=== PATIENT | male | born 1970 | race Caucasian/White ===

== ENCOUNTER 2019-05-02 12:21 | Emergency (ER) | payer BC ==
[2019-05-02] MEDS ORDERED: Sulfamethoxazole/Trimethoprim 800-160 MG Tab ONE (12:30)
--- NOTE | 2019-05-02 12:55 | EDM.PDOC ---
ED HPI GENERAL MEDICAL PROBLEM - General Stated Complaint: INJURY TO LEFT HAND Time Seen by Provider: 05/02/19 12:30 Source of Information: Reports: Patient History Limitations: Reports: No Limitations - History of Present Illness INITIAL COMMENTS - FREE TEXT/NARRATIVE: According to patient he [place] the Saw was running and and ready to stop and accidentally touched his left index finger and sustained laceration of the finger. He has been able to move the finer. Rates his pain at 1-2/10 now. He is upto date on his tetanus, last tetanus was 3 years ago. No other injuries. Onset: Today Onset Date: 05/02/19 Onset Time: 11:00 Duration: Resolved Prior to Arrival Location: Reports: Upper Extremity, Left Quality: Reports: Ache Severity: Mild Improves with: Reports: None Worsens with: Reports: None Associated Symptoms: Denies: Confusion, Chest Pain, Cough, Diaphoresis, Fever/ Chills, Headaches, Nausea/Vomiting, Rash, Seizure, Shortness of Breath, Syncope , Weakness - Related Data Allergies Allergy/AdvReac Type Severity Reaction Status Date / Time No Known Allergies Allergy Verified 05/02/19 12:31 Home Meds: Home Meds NK [No Known Home Meds] 05/02/19 [History] ED ROS GENERAL - Review of Systems Review Of Systems: See Below Constitutional: Denies: Fever, Chills HEENT: Denies: Rhinitis, Throat Pain, Throat Swelling Respiratory: Denies: Shortness of Breath, Pleuritic Chest Pain, Cough, Sputum Cardiovascular: Denies: Chest Pain, Lightheadedness GI/Abdominal: Denies: Abdominal Pain, Nausea, Vomiting : Denies: Flank Pain, Frequency Musculoskeletal: Denies: Joint Pain, Joint Swelling Skin: Reports: Bruising, Wound. Denies: Pruritis, Rash Neurological: Denies: Confusion, Dizziness, Headache, Numbness, Tingling ED EXAM, GENERAL - Physical Exam Exam: See Below Exam Limited By: No Limitations General Appearance: Alert, WD/WN, No Apparent Distress Eye Exam: Bilateral Eye: EOMI, PERRL Ears: Normal External Exam, Normal Canal, Hearing Grossly Normal, Normal TMs Ear Exam: Bilateral Ear: Auricle Normal, Canal Normal, TM normal Nose: Normal Inspection, Normal Mucosa, No Blood Throat/Mouth: Normal Inspection, Normal Lips, Normal Teeth, Normal Gums, Normal Oropharynx, Normal Voice, No Airway Compromise Head: Atraumatic, Normocephalic Neck: Normal Inspection, Supple, Non-Tender, Full Range of Motion Respiratory/Chest: No Respiratory Distress, Lungs Clear, Normal Breath Sounds, No Accessory Muscle Use, Chest Non-Tender Cardiovascular: Normal Peripheral Pulses, Regular Rate, Rhythm, No Edema, No Gallop, No JVD, No Murmur, No Rub Peripheral Pulses: 2+: Radial (L), Radial (R) Extremities: Normal Range of Motion, No Pedal Edema, Normal Capillary Refill Skin Exam: Warm, Other (Left index finger:There are 3 lacerations over theleft index finger middle phalaynx. One is 2 cms long 2nd is 3 cm long and 3rd is 0.8cm long. He does have good ROM of the finger. Actively bleeding.) ED GENERAL MEDICAL PROCEDURES - Laceration/Wound Repair Left Digit - 2nd (Index) Lac/wound length in cm: 5.8 Appearance: Linear Local Anesthesia - Lidocaine (Xylocaine): 1% Plain Local Anesthetic Volume: 2cc Skin Prep: Chlorhexidine (Hibiciens), Providone-Iodine (Betadine), Saline Closed with: Sutures Suture Size: 5-0 # of Sutures: 12 Suture Type: Interrupted Sterile Dressing Applied: Provider Tetanus Status Addressed: Yes Complications: No Course - Vital Signs Text/Narrative:: Pt has total of 5.8 cm laceration with 3 skin lacerations. He does not have any deep tissue injury. Good ROM at the DIP, PIP and MCP joints. Xray of the finger is negative for avulsion fractures. Lacerations were closed under aseptic precautions and tube dressing applied. Pt advised to keep the finger elevated for 24 hrs. Avoid water or wetting for 48 hrs. Daily dressing advised. Suture removal in 1 wk. I have empirically started patient on Bactrim DS 1 po BID for next 10 days. Followup with his primary care provider in 7 days for suture removal. - Orders/Labs/Meds Orders: Active Orders 24 hr Category Date Time Status Fingers Second Digit Lt F1 [CR] Stat Exams 05/02/19 12:39 Ordered Departure - Departure Time of Disposition: 13:40 Disposition: Home, Self-Care 01 Condition: Fair Clinical Impression: Finger laceration - Discharge Information *PRESCRIPTION DRUG MONITORING PROGRAM REVIEWED*: Not Applicable *COPY OF PRESCRIPTION DRUG MONITORING REPORT IN PATIENT GILBERT: Not Applicable Instructions: Sutured Wound Care, Xxtn-to-Crhp - Problem List & Annotations (1) Finger laceration SNOMED Code(s): 388093321 Code(s): S61.219A - LACERATION W/O FB OF UNSP FINGER W/O DAMAGE TO NAIL, INIT Status: Acute Current Visit: Yes - Problem List Review Problem List Initiated/Reviewed/Updated: Yes - My Orders Last 24 Hours: My Active Orders 05/02/19 12:39 Fingers Second Digit Lt F1 [CR] Stat - Assessment/Plan Last 24 Hours: My Active Orders 05/02/19 12:39 Fingers Second Digit Lt F1 [CR] Stat Assessment:: LEft index finger laceration 5.8cm long Plan: Pt has total of 5.8 cm laceration with 3 skin lacerations. He does not have any deep tissue injury. Good ROM at the DIP, PIP and MCP joints. Xray of the finger is negative for avulsion fractures. Lacerations were closed under aseptic precautions and tube dressing applied. Pt advised to keep the finger elevated for 24 hrs. Avoid water or wetting for 48 hrs. Daily dressing advised. Suture removal in 1 wk. I have empirically started patient on Bactrim DS 1 po BID for next 10 days. Followup with his primary care provider in 7 days for suture removal.
[2019-05-02] MEDS ORDERED: Lidocaine 1% 10 ML MDV ONE (13:00)
--- NOTE | 2019-05-03 09:20 | CR ---
Date of Service: 05/02/19 Clinical Data: chain saw injury LEFT SECOND DIGIT: There is soft tissue deformity with some soft tissue emphysema medial to the middle phalanx consistent with a history of chain saw injury. No underlying bony abnormalities. No fracture or dislocation. No lytic or blastic bone lesions. [id number] [facility]
== END 2019-05-02 13:30 | disposition home or self-care (01) ==
LOC: LB.ED 12:21
DX: S61.211A Laceration without foreign body of left index finger without damage to nail, initial encounter (principal); W27.0XXA Contact with workbench tool, initial encounter
CPT/HCPCS: 12002; 73140; 99283; A9270; J2001